=== PATIENT | male | born 1965 | race Caucasian/White ===

== ENCOUNTER 2017-11-15 10:55 | Inpatient (IN) ==
--- NOTE | 2017-11-15 11:11 | Emergency Department Note ---
Disposition Clinical Impression: Cerebrovascular accident Qualifiers: CVA mechanism: unspecified Qualified Code(s): I63.9 - Cerebral infarction, unspecified HTN (hypertension) Qualifiers: Hypertension type: essential hypertension Qualified Code(s): I10 - Essential ( primary) hypertension Disposition: Admitted As Inpatient Condition: Undetermined Time of Disposition: 11:52 Neuro HPI - General Chief Complaint: ED Neuro Symptoms/Deficit Stated Complaint: neuro symptoms Time Seen by Provider: 11/15/17 11:04 Source: patient, family Mode of arrival: ambulatory Limitations: no limitations Nursing Notes Reviewed: Yes Vital Signs Reviewed: Yes - History of Present Illness HPI Narrative: 52-year-old male with history of hypertension arrives to the emergency department complaining of right perioral numbness as well as numbness in the right upper extremity that started at 9 AM this morning. The patient states he woke up and was walking around the house and then all of a sudden had this sensation. The patient denies any headache today but did note that he had a headache yesterday. The patient was hypertensive with a systolic blood pressure 160. The patient denies any other complaints at this time. He is alert to person and place but is unsure of the year. This apparently is not his baseline. The patient denies any chest pain, difficulty breathing or any other noted complaints at this time. Onset of Symptoms Date: 11/15/17 Onset of Symptoms Time: 09:00 Symptom Onset Unknown: No Timing confirmed by: spouse Location: right face, right arm History of same: No Severity: mild Quality: numbness, tingling Symptoms Improving: No Improves with: none Worsens with: none Context: sudden onset On Anticoagulants: No Associated symptoms: Reports: confusion Treatments Prior to Arrival: none All systems ED: reviewed and negative except as stated. Constitutional: Denies: fever, chills ENT ED: Denies: congestion Cardiovascular: Denies: chest pain Respiratory: Denies: dyspnea Gastrointestinal: Denies: abdominal pain Genitourinary: Denies: dysuria Musculoskeletal: Denies: back pain, neck pain Integumentary: Denies: rash Neurological: Reports: headache, numbness, paresthesias, confusion. Denies: weakness Past Medical History - Past Medical History Attestation: Yes The following information was validated with the patient. Source: patient Medical history: Reports: hypertension Surgical history: Reports: non-contributory Psychiatric history: Reports: no psych history - Social History Smoking Status: Current every day smoker Smokeless Tobacco Status: No Alcohol use: Reports: occasionally Drug use: Reports: none Physical Exam - General Limitations: no limitations General appearance: alert, in no apparent distress - Head Head exam: atraumatic, normocephalic, normal inspection - Eye Eye exam: Present: normal appearance, PERRL, EOMI - ENT ENT exam: normal exam, normal oropharynx, mucous membranes moist - Neck Neck exam: Present: normal inspection, full ROM, trachea midline - Chest Chest inspection: Present: normal inspection, symmetric chest wall rise - Respiratory Respiratory exam: Present: normal lung sounds bilaterally - Cardiovascular Cardiovascular exam: Present: regular rate, normal rhythm, normal heart sounds - Abdominal Exam Abdominal exam: Present: soft, Non-Tender. Absent: tenderness, distention, guarding, rebound, rigidity - Extremities Exam Extremities exam: Present: normal inspection, full ROM. Absent: tenderness, pedal edema - Neurological Exam Neurological exam: Present: alert - Expanded Neurological Exam Patient oriented to: Present: person, place Speech: Present: fluid speech Cranial nerves: EOM function (II, III, IV, ): Normal, facial sensation (V): Normal, facial palsy (VII): Normal Cerebellar function: normal gait Motor strength - LUE: 5/5 Motor strength - RUE: 5/5 Motor strength - LLE: 5/5 Motor strength - RLE: 5/5 Sensory exam upper extremity: light touch: Normal Sensory exam lower extremity: light touch: Normal Coma Scale Eye Opening: Spontaneous Coma Scale Motor Response: Obeys Commands Coma Scale Verbal Response: Confused Coma Scale Total: 14 Course Vital Signs Temperature 98.3 F 11/15/17 10:58 Pulse Rate 88 11/15/17 10:58 Respiratory Rate 14 11/15/17 10:58 Blood Pressure 171/111 11/15/17 10:58 O2 Sat by Pulse Oximetry 98 11/15/17 10:58 Temperature 98.3 F 11/15/17 10:58 Pulse Rate 79 11/15/17 12:05 Respiratory Rate 11 11/15/17 12:05 Blood Pressure 137/99 11/15/17 12:05 O2 Sat by Pulse Oximetry 93 11/15/17 11:56 Oxygen Delivery Oxygen Delivery Room Air Neuro Symptoms/Deficit - MDM Narrative Medical decision making narrative: Workup in emergency Department demonstrates no acute process. Given the patient 's physical exam findings I am concerned about the patient having a CVA versus TIA. We will admit the patient to the hospitalist at this time as the patient is not a current TPA candidate. The patient had an NIH of 1. We will administer aspirin as well as admit the patient to the hospitalist service. Accepted by Dr. Gaffney. - Lab Data Lab results reviewed: Yes I reviewed the patient's lab results. Result diagrams: 11/15/17 11:12 11/15/17 11:12 Lab Results 11/15/17 11/15/17 11/15/17 Range/Units 11:12 11:12 11:12 WBC 7.2 (4.3-11.1) K/mcL RBC 5.43 (4.19-5.50) M/mcL Hgb 15.2 (12.9-16.9) g/dL Hct 46.8 (37.5-50.1) % MCV 86.2 (83.0-100.0) fL MCH 28.0 (28.0-33.3) pg MCHC 32.5 (31.6-35.5) g/dL RDW 13.3 (11.5-14.5) % Plt Count 243 (140-400) K/mcL MPV 10.1 (9.4-12.4) fL Immature Gran % 0.4 (0-4) % Seg Neutrophils % 62.1 % Lymphocytes % 23.6 % Monocytes % 8.1 % Eosinophils % 5.2 % Basophils % 0.6 % Neutrophils # 4.5 (1.6-8.9) K/mcL Lymphocytes # 1.7 (0.6-4.6) K/mcL Monocytes # 0.6 (0.0-1.3) K/mcL Eosinophils # 0.4 (0.0-0.6) K/mcL Basophils # 0.0 (0.0-0.2) K/mcL PT 11.1 (9.4-12.1) Seconds INR 1.0 APTT 31.9 (26.0-36.0) Seconds Sodium 142 (136-145) mEq/L Potassium 4.1 (3.5-4.5) mEq/L Chloride 106 (98-109) mEq/L Carbon Dioxide 26 (19-29) mEq/L BUN 10 (8-26) mg/dL Creatinine 0.89 (0.72-1.25) mg/dL Est GFR ( Amer) > 60 (> 60) Est GFR (Non-Af Amer) > 60 (> 60) BUN/Creatinine Ratio 11 (6-26) Glucose 111 H (70-99) mg/dL Calculated Osmolality 294 (280-300) Calcium 9.3 (8.6-10.8) mg/dL Troponin I (0-0.03) ng/mL 11/15/17 Range/Units 11:12 WBC (4.3-11.1) K/mcL RBC (4.19-5.50) M/mcL Hgb (12.9-16.9) g/dL Hct (37.5-50.1) % MCV (83.0-100.0) fL MCH (28.0-33.3) pg MCHC (31.6-35.5) g/dL RDW (11.5-14.5) % Plt Count (140-400) K/mcL MPV (9.4-12.4) fL Immature Gran % (0-4) % Seg Neutrophils % % Lymphocytes % % Monocytes % % Eosinophils % % Basophils % % Neutrophils # (1.6-8.9) K/mcL Lymphocytes # (0.6-4.6) K/mcL Monocytes # (0.0-1.3) K/mcL Eosinophils # (0.0-0.6) K/mcL Basophils # (0.0-0.2) K/mcL PT (9.4-12.1) Seconds INR APTT (26.0-36.0) Seconds Sodium (136-145) mEq/L Potassium (3.5-4.5) mEq/L Chloride (98-109) mEq/L Carbon Dioxide (19-29) mEq/L BUN (8-26) mg/dL Creatinine (0.72-1.25) mg/dL Est GFR ( Amer) (> 60) Est GFR (Non-Af Amer) (> 60) BUN/Creatinine Ratio (6-26) Glucose (70-99) mg/dL Calculated Osmolality (280-300) Calcium (8.6-10.8) mg/dL Troponin I 0.00 (0-0.03) ng/mL - Radiology Data Radiology results reviewed: Yes I reviewed the patient's radiology results. NIH Stroke Scale - Level of Consciousness LOC: Alert - LOC Questions LOC Questions: Answers both correctly - LOC Commands LOC Commands: Performs both correctly - Best Gaze Best Gaze: Normal - Visual Visual: No visual loss - Facial Palsy Facial Palsy: Normal - Motor Arms Motor Arm-Left: No drift for 10 seconds Motor Arm-Right: No drift for 10 seconds - Motor Legs Motor Leg-Left: No drift for 5 seconds Motor Leg-Right: No drift for 5 seconds - Limb Ataxia Limb Ataxia: Normal, No Ataxia - Sensory Sensory: Mild to moderate loss, "not as sharp" - Best Language Best Language: No aphasia - Dysarthria Dysarthria: Normal - Extinction and Inattention Extinction and Inattention: Normal - NIHSS Total Score NIHSS Total Score: 1 Attestation Statement - Attestation Attestation: I examined this patient and my medical decision-making was reviewed with the Resident Physician, Dr. Paz. I agree with the documented findings, disposition and treatment plan as described except to the extent set forth below. Patient is a 52-year-old white male brought to us by EMS this morning with concern for possible stroke. Patient arrives awake and alert with GCS 15 with clear speech able to answer questions appropriately and states that at 9 AM he woke up this morning was asymptomatic at the time of waking shortly after he got out of bed he began experiencing sudden onset of perioral numbness and paresthesias right upper extremity. 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 Patient's reports that he has been off his blood pressure medicines for the past few weeks and that she administered a dose of his amlodipine because she checked his blood pressure was significantly elevated. Patient took his typical morning dose. On arrival here he was hypertensive, Agree patient's physical exam findings as documented. Patient's NIH score on arrival equals 1 stroke alert was called Sent to CT scan following Accu-Chek which was within normal limits. Upon arrival back EKG was obtained labs were drawn and sent patient's symptoms upon return from CT were unchanged. No new symptoms. Patient's blood pressure improving without any medications ordered. CT head was reported as within normal limits by radiology. [facility] stroke heart was activated and the [facility] neurologist evaluated the patient at bedside as well. He is in agreement with he should not being a candidate for TPA. His recommendation was admission and further evaluation for CVA versus TIA. Patient's blood pressure has significantly improved over time, aspirin was administered and patient's neurologic exam is stable. Case was discussed with the hospitalist who accepted patient for admission.
[2017-11-15 11:26] LABS: Basophils % 0.6 %; Eosinophils # 0.4 K/mcL (0.0-0.6); Eosinophils % 5.2 %; Hematocrit 46.8 % (37.5-50.1); Hemoglobin 15.2 g/dL (12.9-16.9); Immature Granulocytes % 0.4 % (0-4); Lymphocytes # 1.7 K/mcL (0.6-4.6); Lymphocytes % 23.6 %; Mean Corpuscular HGB Conc 32.5 g/dL (31.6-35.5); Mean Corpuscular Volume 86.2 fL (83.0-100.0); Mean Platelet Volume 10.1 fL (9.4-12.4); Monocytes # 0.6 K/mcL (0.0-1.3); Monocytes % 8.1 %; Neutrophils # 4.5 K/mcL (1.6-8.9); Platelet Count 243 K/mcL (140-400); Red Blood Count 5.43 M/mcL (4.19-5.50); Red Cell Distribution Width 13.3 % (11.5-14.5); Segmented Neutrophils % 62.1 %
[2017-11-15 11:31] LABS: Prothrombin Time 11.1 Seconds (9.4-12.1)
[2017-11-15 11:34] LABS: Activated Partial Thrombo Time 31.9 Seconds (26.0-36.0)
[2017-11-15 11:37] LABS: BUN/Creatinine Ratio 11 (6-26); Blood Urea Nitrogen 10 mg/dL (8-26); Calcium 9.3 mg/dL (8.6-10.8); Carbon Dioxide 26 mEq/L (19-29); Chloride 106 mEq/L (98-109); Glucose 111 mg/dL (70-99); Osmolality,Calculated 294 (280-300); Potassium 4.1 mEq/L (3.5-4.5); Sodium 142 mEq/L (136-145); eGFR For African Americans > 60 (> 60); eGFR For Non-African Americans > 60 (> 60)
[2017-11-15] MEDS ORDERED: Aspirin 325 MG TABLET PO ONE (11:50)
[2017-11-15] MEDS ORDERED: *HR* Metoprolol 5 MG/5 ML VIAL IVP PRN (13:41)
[2017-11-15] MEDS ORDERED: Ondansetron 4 MG/2 ML VIAL IVP PRN (13:49)
[2017-11-15] MEDS ORDERED: Naloxone 0.4 MG/ML INJ IVP PRN (13:49)
--- NOTE | 2017-11-15 13:57 | Internal Med History&Physical ---
<Av Valencia - Last Filed: 11/15/17 13:54> Date of Encounter: 11/15/17 Time of Encounter: 13:54 Assessment and Plan (1) Cerebrovascular accident Current visit: Yes Status: Acute still reporting some right-sided numbness and tingling. Due to clinical presentation initially and continued symptoms and concern for parietal infarct. NIH score of 1, no focal neuro deficits noted. No prior history of arrhythmias, or VTE No prior CVA. Due to continued symptoms will make inpatient admission for further workup and evaluation Consult neurology-spoke with Dr. Burden and he has agreed to see patient MRI of the brain without contrast now Bilateral carotid ultrasounds to assess for stenosis Echocardiogram to assess for potential cardioembolic etiology Start patient on 40 mg simvastatin now, start 81 mg aspirin daily Every 2 hours neuro checks Continuous telemetry, continuous SPO2 monitoring Qualifiers: CVA mechanism: unspecified Qualified Code(s): I63.9 - Cerebral infarction, unspecified (2) HTN (hypertension) Current visit: Yes Status: Acute Hypertensive on arrival with SBP in the 170s. Now stable with SBP 130s. Patient is on Norvasc at home reports he has not taken his Norvasc for the last couple of weeks due to concern about possible side effects. However, his gave him his Norvasc after recognizing stroke symptoms prior to coming to the ED. Symptoms improved with BP control. Resume Norvasc Metoprolol 5 mg IV push every 6 hours for sustained SBP greater than 170 Qualifiers: Hypertension type: essential hypertension Qualified Code(s): I10 - Essential (primary) hypertension (3) DVT prophylaxis Current visit: Yes Status: Acute Heparin 5000 units subcutaneous twice a day Internal Medicine - H&P: HPI Chief complaint: Perioral numbness and tingling, right-sided paresthesias Admitted From: Home Plans for Post Hospital Care: Home History of present illness: Mr. Mercer is a 52 year old male with PMH of HTN. Presents today with perioral numbness and tingling and right-sided paresthesias. Denies any fever, chills, chest pain, shortness of breath, dizziness, vision changes, headaches. No prior history of CVA, no history of CAD. Main risk factor includes obesity and hypertension. Last known well as 9 AM this morning. Patient reports no longer allows again experiencing some numbness and tingling around her lips, and ataxia of right leg and right upper extremity. He reports that he was having difficulty brushing his teeth and no longer uses right hand. Such was left. at bedside reporting slurred speech and dragging right foot. By time of arrival to the ED patient only reporting jumps and tingling in the right fingers and mild perioral numbness. Workup thus far negative. CT of the head no acute intracranial abnormalities. Due to symptoms patient is being admitted for further rule out of CVA versus TIA Past Med Surg Social Fam HX - Past Medical History Medical history: hypertension Psychiatric history: no psych history - Past Surgical History Surgical History: non-contributory - Social History Smoking Status: Current every day smoker Smokeless Tobacco Status: No Alcohol use: occasionally Drug use: none - Family History Mother Age: 71 Living Status: Still Living Hx Family Endocrine Disorder: Yes (DM) Father Living Status: Age at : 72 Cause of : Pulmonary Fibrosis Hx Family Cardiac Disorders: Yes (HTN, CT) Hx Family Respiratory Disorders: Yes (Pulmonary fibrosis) Hx Family Neurologic Disorders: Yes (Stroke) Internal Medicine - H&P: Meds amLODIPine [Norvasc] 5 mg PO DAILY 11/15/17 [History] 3 Allergy/AdvReac Type Severity Reaction Status Date / Time No Known Allergies Allergy Verified 11/15/17 11:59 All Systems PM: A 10-system review of systems was performed and is negative for pertinent findings except as documented above in the HPI. - Constitutional Constitutional: no chills, no fever(s), no night sweats - EENT Eyes: no change in vision, no discharge, no pain, no photophobia Ears: no ear discharge, no ear pain, no tinnitus Nose, mouth and throat: no dysphagia, no nasal discharge, no neck pain, no sore throat - Cardiovascular Cardiovascular ROS IM: no chest pain, no diaphoresis, no dyspnea, no lightheadedness, no palpitations, no syncope - Respiratory Respiratory: no cough, no dyspnea, no wheezing, no excessive phlegm production - Gastrointestinal Gastrointestinal: no abdominal pain, no diarrhea, no hematemesis, no hematochezia, no melena, no nausea, no vomiting - Musculoskeletal Musculoskeletal ROS IM: no numbness, no tingling - Integumentary Integumentary IM: no rash, no unusual bruising - Neurological Neurological ROS: as per HPI, numbness, tingling, no confusion, no convulsions, no focal weakness, no headache(s), no tremor(s) - Hematologic/Lymphatic Hematologic/Lymphatic: no easy bruising - Constitutional Vitals: Temp Pulse Resp BP Pulse Ox 98.1 F 71 15 122/83 96 11/15/17 13:09 11/15/17 13:09 11/15/17 13:09 11/15/17 13:09 11/15/17 13:13 General appearance: Present: cooperative, A&O X 3, no acute distress, answers questions appropriately - Head Head exam: Present: atraumatic, normocephalic - Eye Eye exam: Present: PERRL, conjuntiva pink, sclera anicteric Pupils: Present: PERRL - Neck Neck exam general surgery: Present: supple, trachea midline. Absent: lymphadenopathy - Respiratory Respiratory exam: Present: CTAB. Absent: accessory muscle use, rales, rhonchi, wheezes - Cardiovascular Cardiovascular exam: Present: RRR, +S1, +S2. Absent: diastolic murmur, gallop, rubs, systolic murmur - GI/Abdominal GI/Abdominal exam: Present: normal bowel sounds, soft, no peritoneal signs. Absent: distended, tenderness - Extremities Exam Extremities exam: Present: warm, radial pulses palpable and symmetrical. Absent : calf tenderness, cyanotic, pedal edema - Neurological Exam Neurological exam: Present: alert, CN II-XII intact, oriented X3, no focal deficits, strengths equal and symetr throughout. Absent: pronater drift, facial droop, speech deficit - Expanded Neurological Exam Neurological exam expanded: Absent: expressive aphasia, receptive aphasia Patient oriented to: Present: person, place, time Speech: Present: fluid speech Cranial Nerves: EOM's intact PM: Normal, gag reflex PM: Normal, nystagmus PM: Normal, tongue deviation PM: Normal Cerebellar function: finger to nose: Normal, heel to de la rosa: Normal, Romberg: Normal Upper motor neuron: Babinski sign: Normal, Eliezer neglect: Normal, pronator drift : Normal, sensory extinction: Normal Neuro motor strength exam: LUE: 5, RUE: 5, LLE: 5, RLE: 5 Coma Scale Eye Opening: Spontaneous Coma Scale Motor Response: Obeys Commands Coma Scale Verbal Response: Oriented Coma Scale Total: 15 - Skin Skin exam: Present: dry, intact Internal Med - H&P Results - Labs CBC & Chem 7: 11/15/17 11:12 11/15/17 11:12 - EKG Data -: EKG Interpreted by Myself EKG shows normal: sinus rhythm - EKG Data Prior EKG available for review: yes When compared to previous EKG: there is no significant change Interpretation IM: normal EKG - Diagnostic Studies Chest x-ray Status: image reviewed by me Additional comments: No acute pulmonary process CT scan - head Status: image reviewed by me Additional comments: No acute intracranial abdomen allergies, no mass effect, hemorrhage or midline shift <Cathryn Sargent - Last Filed: 11/15/17 18:15> Date of Encounter: 11/15/17 Internal Medicine - H&P: HPI History of present illness: Mr. Mercer is a 52 year old male All Systems PM: A 10-system review of systems was performed and is negative for pertinent findings except as documented above in the HPI. - Constitutional Vitals: Temp Pulse Resp BP Pulse Ox 98.0 F 69 16 137/84 97 11/15/17 14:35 11/15/17 14:35 11/15/17 14:35 11/15/17 14:35 11/15/17 14:35 Internal Med - H&P Results - Labs CBC & Chem 7: 11/15/17 11:12 11/15/17 11:12 - Impressions ITS Impressions Brain MRI 11/15/17 14:03 IMPRESSION: No acute infarct, intracranial hemorrhage, or significant mass effect. D/ /15/2017 17:30:17 Mejia Ac MD / gary Interpreting Provider: Mejia Ac MD Neck MRA 11/15/17 14:30 IMPRESSION: No high-grade stenoses or focal occlusion involving the cervical vasculature. D/ / 11/15/2017 17:24:50 Mejia Ac MD / eugenio Interpreting Provider: Mejia Ac MD Head MRA 11/15/17 14:31 IMPRESSION: No high-grade stenosis or occlusion. No evidence of intracranial aneurysm. D/ / 11/15/2017 17:22:06 Mejia Ac MD / eugenio Interpreting Provider: Mejia Ac MD - Attending Attestation I examined this patient and my medical decision-making was reviewed with the Resident Physician. I agree with the documented findings, disposition and treatment plan as described except to the extent set forth below.
--- NOTE | 2017-11-15 14:22 | Neurology - Consult Note ---
Date of Encounter: 11/15/17 Time of Encounter: 14:18 Assessment and Plan (1) Cerebrovascular accident Current Visit: Yes Status: Acute Certainly is possible that he is experiencing symptoms of left cerebral hemispheric ischemia. He has had several hypertensive blood pressure readings since admission. He does have stroke risk factors including hypertension and obesity. He states that his father had an MO at age 57. He also smokes cigarettes. I did have the nurse recheck his vital signs, his blood pressure was 146/88. He was given aspirin in the ED according to protocol. I am going to obtain an MRI scan of the head with diffusion images along with MRA of the head and neck. I recommend maintaining stroke protocol orders pending further investigation. Qualifiers: CVA mechanism: unspecified Qualified Code(s): I63.9 - Cerebral infarction, unspecified History of Present Illness HPI: Mr. Mercer is a 52 year old male who was seen for neurologic consultation secondary to symptoms of transient ischemia. He does have a prior medical history of hypertension. He states that after awakening this morning he noticed some paresthesias involving the right side of the lips as well as paresthesias in the right upper extremity and right leg. His mentioned that he seemed to have some slurred speech. He apparently he had difficulty brushing his teeth this morning and was reported to have slurred speech. He states that his symptoms have resolved but now they are beginning to return. He denies headache denies vertigo denies visual changes. He has had some hypertensive readings since admission, 171/111, another was 162/105. He states that his symptoms of just returned in his blood pressure currently is 146/88. Stat CT scan of the head completed through the ED was negative. MRI scan of the brain as well as MRA of the head and neck are pending. Currently aside from the paresthesias he is in no acute distress. No dyspnea, diaphoresis no chest pain no weakness or changes. No speech difficulty. Past Med Surg Social Fam HX - Past Medical History Medical history: hypertension Psychiatric history: no psych history - Past Surgical History Surgical History: non-contributory - Social History Smoking Status: Current every day smoker Smokeless Tobacco Status: No Alcohol use: occasionally Drug use: none - Family History Mother Age: 71 Living Status: Still Living Hx Family Endocrine Disorder: Yes (DM) Father Living Status: Age at : 72 Cause of : Pulmonary Fibrosis Hx Family Cardiac Disorders: Yes (HTN, MO) Hx Family Respiratory Disorders: Yes (Pulmonary fibrosis) Hx Family Neurologic Disorders: Yes (Stroke) Medications and Allergies amLODIPine [Norvasc] 5 mg PO DAILY 11/15/17 [History] 3 Allergy/AdvReac Type Severity Reaction Status Date / Time No Known Allergies Allergy Verified 11/15/17 11:59 All Systems: A 10-system review of systems was performed and is negative for pertinent findings except as documented above in the HPI. Review of Systems: 10 point review of systems is consistent with a history of present illness and otherwise negative. Physical Examination - Vital Signs Vital Signs: Initial Vital Signs Temp Pulse Resp BP Pulse Ox 98.3 F 88 14 171/111 98 11/15/17 10:58 11/15/17 10:58 11/15/17 10:58 11/15/17 10:58 11/15/17 10:58 - Neurologic Sensorimotor examination: other (Hypoesthesias of the right upper and right lower lip as well as paresthesias of the fingertips on the right hand.) Detailed motor examination: full strength in all major muscle groups Motor examination - right side: 5/5: deltoids, biceps, triceps, wrist flexion, wrist extension, polishing machine tender, hip flexors, tibialis Anterior, quadriceps, toe extension (EHL), plantarflexion Motor examination - left side: 5/5: deltoids, biceps, triceps, wrist flexion, wrist extension, hip flexors, polishing machine tender, quadriceps, tibialis Anterior, toe extension (EHL), plantarflexion Reflexes: Biceps: 1+, Triceps: 1+, Brachioradialis: 1+, Patella: 1+, Achilles: 1 + Mental Status Examination: awake, alert, oriented to person, oriented to place, oriented to time, follows commands appropriately, answers questions appropriately, no agnosia, no aphasia, no aproxia Cranial nerve examination: PERRL, EOMI, visual mcdonald intact, corneal reflexes brisk symmetrically, sensory to face intact, mastication intact, no facial asymmetry is present, no dysarthria, hearing is intact symmetrically, soft palate elevates bilaterally upon phonation, gag reflex intact, flexes SCM and trapezius muscles symmetrically with full power, tongue protrudes midline, no atrophy or facial fasiculations present Cerebellar examination: no dysmetria, performs finger to nose and heel to de la rosa symmetrically without ataxia, no gait ataxia, no truncal ataxia, no difficulty with rapid alternating movements Results - Laboratory Findings CBC and BMP: 11/15/17 11:12 11/15/17 11:12 Abnormal lab findings: Abnormal lab results Glucose 111 mg/dL (70-99) H 11/15/17 11:12 Consult Discharge Plan - Plan Referrals: NONE,PCP [Primary Care Provider] -
[2017-11-15] MEDS: *HR* Heparin 5,000 UNIT/ML VIAL SQ SCH (17:12)
[2017-11-16] MEDS: *HR* Heparin 5,000 UNIT/ML VIAL SQ SCH (05:41)
[2017-11-16] MEDS ORDERED: Acetaminophen/Aspirin/Caffeine TABLET PO ONE (05:43)
[2017-11-16 07:01] LABS: Basophils % 0.4 %; Eosinophils # 0.4 K/mcL (0.0-0.6); Eosinophils % 4.4 %; Hematocrit 45.1 % (37.5-50.1); Hemoglobin 14.8 g/dL (12.9-16.9); Immature Granulocytes % 0.4 % (0-4); Lymphocytes # 1.6 K/mcL (0.6-4.6); Lymphocytes % 19.5 %; Mean Corpuscular HGB Conc 32.8 g/dL (31.6-35.5); Mean Corpuscular Volume 85.3 fL (83.0-100.0); Mean Platelet Volume 10.5 fL (9.4-12.4); Monocytes # 0.6 K/mcL (0.0-1.3); Monocytes % 6.8 %; Neutrophils # 5.7 K/mcL (1.6-8.9); Platelet Count 249 K/mcL (140-400); Red Blood Count 5.29 M/mcL (4.19-5.50); Red Cell Distribution Width 13.4 % (11.5-14.5); Segmented Neutrophils % 68.5 %
[2017-11-16 07:13] LABS: BUN/Creatinine Ratio 11 (6-26); Blood Urea Nitrogen 9 mg/dL (8-26); Calcium 8.9 mg/dL (8.6-10.8); Carbon Dioxide 27 mEq/L (19-29); Chloride 105 mEq/L (98-109); Glucose 116 mg/dL (70-99); Osmolality,Calculated 290 (280-300); Potassium 3.8 mEq/L (3.5-4.5); Sodium 140 mEq/L (136-145); eGFR For African Americans > 60 (> 60); eGFR For Non-African Americans > 60 (> 60)
[2017-11-16] MEDS ORDERED: amLODIPine 5 MG TABLET PO SCH (09:00)
[2017-11-16] MEDS ORDERED: Aspirin 81 MG TAB.CHEW PO SCH (09:00)
--- NOTE | 2017-11-16 12:33 | Discharge Summary ---
Date of Encounter: 11/16/17 Time of Encounter: 12:33 - Discharge Diagnosis (1) TIA (transient ischemic attack) Priority: Primary Status: Acute Qualifiers: Transient cerebral ischemia type: unspecified Qualified Code(s): G45.9 - Transient cerebral ischemic attack, unspecified (2) HLD (hyperlipidemia) Priority: Secondary Status: Chronic Qualifiers: Hyperlipidemia type: unspecified Qualified Code(s): E78.5 - Hyperlipidemia , unspecified (3) HTN (hypertension) Priority: Secondary Status: Chronic Qualifiers: Hypertension type: essential hypertension Qualified Code(s): I10 - Essential (primary) hypertension - Discharge Medications Prescriptions: amLODIPine [Norvasc] 5 mg PO DAILY #30 tablet Aspirin 81 mg PO DAILY #30 tab.chew Simvastatin [Zocor] 40 mg PO HS #30 tablet Home Medications: Aspirin 81 mg PO DAILY #30 tab.chew 11/16/17 [Rx] Simvastatin [Zocor] 40 mg PO HS #30 tablet 11/16/17 [Rx] amLODIPine [Norvasc] 5 mg PO DAILY #30 tablet 11/16/17 [Rx] Allergies/Adverse Reactions: 3 Allergy/AdvReac Type Severity Reaction Status Date / Time No Known Allergies Allergy Verified 11/15/17 11:59 Procedures/tests Complete & Pending: Procedures Performed prior 72 hours Category Date Time Status MR angio head wo con [MR] Stat MRI 11/15/17 14:31 Completed MR angio neck wo con [MR] Stat MRI 11/15/17 14:30 Completed MR head/brain wo con [MR] Routine MRI 11/15/17 14:03 Completed EV carotid duplex imaging BI Routine Y 11/16/17 14:03 Completed EV echocardiogram Routine Y 11/16/17 08:21 Completed Date of admission: 11/15/17 13:49 Primary care physician: PCP NONE Discharging clinician: Axel Tamez Anticipated date of discharge: 11/16/17 - Patient Status Disposition: Home, Self-Care Condition: Good Functional capacity at discharge: independent ambulation Overall status at discharge: patient is back to baseline - Discharge Instructions Instructions: Simvastatin (By mouth), Transient Ischemic Attack (DC), Influenza Vaccine (GEN), Low Sodium Diet (DC) Follow Up With: NONE,PCP [Primary Care Provider] - Additional Instructions: Follow-up appointments: If there is not an appointment listed below, please call your physician and schedule a follow-up appointment. If you have congestive heart failure and your symptoms return, make an appointment with your physician. Medication List: Carry an up to date list of medications you are taking at all time. We have given you an updated medication list including any new medications that you have been prescribed. Please provide that list to your primary provider Symptoms: If your condition changes or you experience any of the following symptoms, notify your physician immediately: Unusual or worsening pain, fever, persistent nausea and vomiting, bleeding, increase in swelling (especially in your legs), sudden weight gain, extreme dizziness, chest pain, increased drainage or redness from a wound or incision. Go to the emergency department if you experience a problem with breathing. Weights: If you have a history of swelling or shortness of breath, weigh yourself daily and notify your physician if you have a weight gain of two or more pounds in one day or 5 or more pounds in a week. If you experience any of the warning signs for stroke: Sudden numbness or weakness of the face, arm or leg; especially on one side of the body, sudden confusion, trouble speaking or understanding, sudden trouble seeing in one or both eyes, sudden trouble walking, dizziness, loss of balance or coordination, sudden sever headache with no cause; Call 911 or go to the emergency room. Stroke is a medical emergency. Some risk factors for stroke: Age, cigarette smoking, diabetes, excessive alcohol consumption, family history , high blood pressure, overweight, physical inactivity, prior stroke, heart attack, diagnosis of carotid artery stenosis or other artery disease. If you smoke, STOP: Smoking or tobacco use significantly increases your risk of heart and lung disease. Your chance of disease greatly increases if you continue to smoke. For more information, call the [place] tobacco quit line for smoking cessation QUIT-NOW ( ) - Diet and Activity Activity: resume usual activities as tolerated Diet: low salt diet Interval History: See below Hospital course: Mr. Mercer is a 52 year old male with PMH of HTN and Morbid Obesity, not complaint with medications He is a never smoker He presented with paraesthesias of his right face and lip region, as well as his RUE and RLE Head CT, Brain MRI, Head and Neck MRA, Carotid doppler and ECHO were unremarkable Hs EKG was sinus His blood pressure was elevate don arrival, controlled with re-initiation of his home meds Neurology was consulted and recommendations were for the work up above which were normal Lipid panel showed cholesterolemia Seen at bedside with spouse NO new complains, paresthesias is still present but improved CVA has been ruled out as no imaging evidence of infarct, ischemia or obstruction Encouraged on lifestyle modification and compliance with medications Discharged home on Amlodipine 5mg, Simvastatin, Aspirin, Follow up with PCP for medication adjustment and monitoring - Time Spent with Patient Total time spent providing and/or coordinating discharge services: Less than 30 minutes - Constitutional Vitals: Temp Pulse Resp BP Pulse Ox 97.8 F 78 15 135/88 95 11/16/17 10:49 11/16/17 10:49 11/16/17 10:49 11/16/17 10:49 11/16/17 10:49 General appearance: Present: cooperative, A&O X 3, no acute distress, answers questions appropriately - Head Head exam: Present: atraumatic, normocephalic - Eye Eye exam: Present: PERRL, conjuntiva pink, sclera anicteric Pupils: Present: PERRL - Neck Neck exam general surgery: Present: supple, trachea midline. Absent: lymphadenopathy - Respiratory Respiratory exam: Present: CTAB. Absent: accessory muscle use, rales, rhonchi, wheezes - Cardiovascular Cardiovascular exam: Present: RRR, +S1, +S2. Absent: diastolic murmur, gallop, rubs, systolic murmur - GI/Abdominal GI/Abdominal exam: Present: normal bowel sounds, soft, no peritoneal signs. Absent: distended, tenderness - Extremities Exam Extremities exam: Present: warm, radial pulses palpable and symmetrical. Absent : calf tenderness, cyanotic, pedal edema - Neurological Exam Neurological exam: Present: alert, CN II-XII intact, oriented X3, no focal deficits. Absent: pronater drift, facial droop, speech deficit - Skin Skin exam: Present: dry, intact
[2017-11-16] MEDS ORDERED: amLODIPine 5 MG TABLET PO ONE (13:00)
[2017-11-16 14:54] VITALS: BP 136/83
--- NOTE | 2017-11-16 15:10 | Neurology Progress Note ---
Date of Encounter: 11/16/17 Time of Encounter: 15:07 Assessment and Plan (1) Cerebrovascular accident Current Visit: Yes Status: Acute Qualifiers: CVA mechanism: unspecified Qualified Code(s): I63.9 - Cerebral infarction, unspecified (2) Rt facial numbness Current Visit: Yes Status: Acute At this juncture not able to identify any specific central nervous system or peripheral nervous system disorder to explain this phenomenon. Other than the subjective numbness of the right upper and lower lip in the tips of the fingers in the right hand is neurologic exam is normal. If I would still recommend discharging him on an aspirin a day. Risk factor management is paramount. Systems persist we consider EMG of the right upper extremity as an outpatient. Otherwise we will reevaluate him at your request. We discharged him at your discretion. Subjective Interval history: Chart was reviewed, patient was seen and examined. He still has complaints of subjective numbness of the right upper and lower liver. He still has subjective numbness of the tip of the thumb and index finger on the right hand. Otherwise his neurologic examination is completely normal. I find no objective evidence of central nervous system disorder at this point. Imaging studies have all come back normal. Echocardiogram is unrevealing as well. Objective - Constitutional Vitals: Temp Pulse Resp BP Pulse Ox 97.8 F 80 16 136/83 95 11/16/17 14:51 11/16/17 14:51 11/16/17 14:51 11/16/17 14:51 11/16/17 14:51 - Neurological Exam Sensorimotor examination: Present: other (Hypoesthesias of the right upper and right lower lip as well as paresthesias of the fingertips on the right hand.) Motor Examination: Present: full strength in all major muscle groups Motor examination - right side: 5/5: deltoids, biceps, triceps, wrist flexion, wrist extension, development technologist, hip flexors, tibialis Anterior, quadriceps, toe extension (EHL), plantarflexion Motor examination - left side: 5/5: deltoids, biceps, triceps, wrist flexion, wrist extension, hip flexors, development technologist, quadriceps, tibialis Anterior, toe extension (EHL), plantarflexion Mental Status Examination: Present: awake, alert, oriented to person, oriented to place, oriented to time, follows commands appropriately, answers questions appropriately, no agnosia, no aphasia, no aproxia Cranial nerve examination: Present: PERRL, EOMI, visual mcdonald intact, corneal reflexes brisk symmetrically, sensory to face intact, mastication intact, no facial asymmetry is present, no dysarthria, hearing is intact symmetrically, soft palate elevates bilaterally upon phonation, gag reflex intact, flexes SCM and trapezius muscles symmetrically with full power, tongue protrudes midline, no atrophy or facial fasiculations present Cerebellar examination: Present: no dysmetria, performs finger to nose and heel to [place] symmetrically without ataxia, no gait ataxia, no truncal ataxia, no difficulty with rapid alternating movements Results - Laboratory Findings CBC and BMP: 11/16/17 06:02 11/16/17 06:02 Abnormal lab findings: Abnormal lab results Glucose 116 mg/dL (70-99) H 11/16/17 06:02 POC Glucose 116 (58-89) H 11/15/17 11:01 Triglycerides 166 mg/dL (< 150) H 11/16/17 06:02 LDL Cholesterol, Calc 122 mg/dL (0-99) H 11/16/17 06:02 VLDL Cholesterol, Calc 33 mg/dL (< 31) H 11/16/17 06:02 HDL Cholesterol 31 mg/dL (40-59) L 11/16/17 06:02 Cholesterol/HDL Ratio 6.0 (0-4.9) H 11/16/17 06:02 Consult Discharge Plan - Plan Instructions: Simvastatin (By mouth), Transient Ischemic Attack (DC), Influenza Vaccine (GEN), Low Sodium Diet (DC) Referrals: NONE,PCP [Primary Care Provider] - Prescriptions: amLODIPine [Norvasc] 5 mg PO DAILY #30 tablet Aspirin 81 mg PO DAILY #30 tab.chew Simvastatin [Zocor] 40 mg PO HS #30 tablet
--- NOTE | 2017-11-17 10:00 | Electrocardiograph Report ---
[place] [id number] Test Date: 2017-11-15 Pat Name: Anant Mercer Department: 104 Room: 3B Gender: M [employer]: MSC : [id number] Requested By: Jay Paz Order Number: [id number] Reading MD: Terrence Thomas DO Measurements Intervals [place] Rate: 73 P: 43 [place]: 162 QRS: -15 QRSD: 94 T: 30 QT: 359 QTc: 385 Interpretive Statements SINUS RHYTHM Electronically Signed On 11-17-2017 9:58:32 EST by Terrence Thomas DO
== END 2017-11-16 15:53 | disposition home or self-care (01) | DRG 69 ==
LOC: EMEROO 10:55 → 3BNU 10:55 → SUATTDRO 13:49
PROVIDERS: ADMIT Internal Medicine; ATTEND Internal Medicine

== ENCOUNTER 2022-09-01 10:29 | Observation (INO) ==
[2022-09-01] MEDS ORDERED: Albuterol 2.5 MG/3 ML NEBULIZER IH PRN (11:09)
[2022-09-01] MEDS ORDERED: *HR* HYDROmorphone PF 0.5 MG/0.5 ML SYRINGE IVP PRN (11:09)
[2022-09-01] MEDS ORDERED: Ondansetron 4 MG/2 ML VIAL IVP PRN ×2 (11:09→19:21)
[2022-09-01] MEDS ORDERED: Ipratropium Neb 0.5 MG NEBULIZER IH PRN (11:09)
[2022-09-01] MEDS ORDERED: *HR* Labetalol 20 MG/4 ML SYRINGE IVP PRN (11:09)
[2022-09-01] MEDS ORDERED: Acetaminophen IV 1,000 MG/100 ML BAG IVPB PRN (11:09)
[2022-09-01] MEDS ORDERED: *HR* OxyCODONE Immed Rel 5 MG TABLET PO PRN (11:09)
[2022-09-01] MEDS ORDERED: *HR* FentaNYL (PF) 100 MCG/2 ML VIAL IVP PRN (11:09)
[2022-09-01] MEDS ORDERED: CeFAZolin Syr 3,000MG/30 ML 3,000 MG/30 ML SYRINGE IVPB ONE (11:17)
[2022-09-01] MEDS ORDERED: Ringers Solution, Lactated 1,000 ML IVC SCH ×2 (11:30→19:21)
[2022-09-01] MEDS ORDERED: Ondansetron 4 MG/2 ML VIAL ONE (12:16)
[2022-09-01] MEDS ORDERED: *HR* Midazolam HCl 2 MG/2 ML VIAL ONE (12:16)
[2022-09-01] MEDS ORDERED: Lidocaine -MPF 2% 2 ML VIAL ONE ×2 (12:16→12:18)
[2022-09-01] MEDS ORDERED: *HR* Succinylcholine 200 MG/10 ML VIAL IVP ONE (12:16)
[2022-09-01] MEDS ORDERED: *HR* FentaNYL (PF) 100 MCG/2 ML VIAL ONE (12:16)
[2022-09-01] MEDS ORDERED: *HR* Rocuronium Bromide 50 MG/5 ML VIAL ONE (12:16)
[2022-09-01] MEDS ORDERED: *HR* Propofol 200 MG/20 ML VIAL IVP ONE ×2 (12:16→13:59)
[2022-09-01] MEDS ORDERED: Vancomycin 1,000 MG VIAL ONE (13:24)
[2022-09-01] MEDS ORDERED: EPHEDrine sulfate 50 MG/10 ML VIAL IVP ONE (14:39)
[2022-09-01] MEDS ORDERED: *HR* Remifentanil 1 MG VIAL IVP ONE ×2 (15:15→16:05)
[2022-09-01] MEDS ORDERED: *HR* HYDROMORPHONE 2 MG/ML VIAL ONE ×2 (15:50→16:49)
[2022-09-01] MEDS ORDERED: Promethazine 6.25 MG in Water for inj. (sterile) 20 ML IVPB PRN (17:50)
[2022-09-01] MEDS ORDERED: Acetaminophen 325 MG TABLET PO PRN (19:21)
[2022-09-01] MEDS ORDERED: Naloxone 0.4 MG/ML INJ IVP PRN (19:21)
[2022-09-01] MEDS ORDERED: Prochlorperazine 10 MG/2 ML VIAL IVP PRN (20:05)
[2022-09-01] MEDS: *HR* HYDROcodone/Acet 5/325 mg TABLET PO PRN (22:34)
[2022-09-02] MEDS: ceFAZolin 3,000 MG in 0.9 % Sodium Chloride 100 ML IVPB SCH ×2 (00:21→08:13)
[2022-09-02] MEDS: *HR* OxyCODONE Immed Rel 5 MG TABLET PO PRN ×4 (03:01→21:37)
[2022-09-02] MEDS: *HR* HYDROcodone/Acet 5/325 mg TABLET PO PRN ×2 (05:17→12:07)
[2022-09-02] MEDS: Acetaminophen IV 1,000 MG/100 ML BAG IVPB PRN ×2 (05:18→23:02)
[2022-09-02] MEDS: Loratadine/Pseudophed (12 HR) 1 EACH TABLET PO SCH (08:02)
[2022-09-02] MEDS: lisinopriL 20 MG TABLET PO SCH (08:02)
[2022-09-02] MEDS: amLODIPine 5 MG TABLET PO SCH (08:02)
[2022-09-02] MEDS ORDERED: ceFAZolin 3,000 MG in 0.9 % Sodium Chloride 100 ML IVPB SCH (09:00)
[2022-09-02] MEDS: tiZANidine 4 MG TABLET PO PRN ×2 (12:07→21:37)
[2022-09-03] MEDS: *HR* OxyCODONE Immed Rel 5 MG TABLET PO PRN ×4 (02:48→20:36)
[2022-09-03] MEDS: tiZANidine 4 MG TABLET PO PRN ×2 (05:48→15:05)
[2022-09-03] MEDS: *HR* HYDROcodone/Acet 5/325 mg TABLET PO PRN (05:48)
[2022-09-03] MEDS: Loratadine/Pseudophed (12 HR) 1 EACH TABLET PO SCH (10:39)
[2022-09-03] MEDS: lisinopriL 20 MG TABLET PO SCH (10:39)
[2022-09-03] MEDS: amLODIPine 5 MG TABLET PO SCH (10:39)
[2022-09-04] MEDS: *HR* OxyCODONE Immed Rel 5 MG TABLET PO PRN ×3 (00:18→11:52)
[2022-09-04] MEDS: tiZANidine 4 MG TABLET PO PRN ×2 (01:24→10:27)
[2022-09-04 06:53] LABS: Bilirubin,Urine Negative (Negative); Blood,Urine Negative (Negative); Clarity,Urine Clear (Clear); Color,Urine Colorless (Yellow); Glucose,Urine (UA) Normal (Normal); Ketones,Urine Negative (Negative); Leukocyte Esterase,Urine Negative (Negative); Nitrite,Urine Negative (Negative); PH,Urine 6.5 pH Units (5.0-8.0); Protein,Urine Negative (Neg-Trace); Specific Gravity,Urine 1.006 (1.010-1.025); Urobilinogen,Urine Normal (Normal)
[2022-09-04 09:08] VITALS: BP 119/80; PULSE 86; TEMP 98.7; O2SAT 93
[2022-09-04] MEDS: amLODIPine 5 MG TABLET PO SCH (09:08)
[2022-09-04] MEDS: Loratadine/Pseudophed (12 HR) 1 EACH TABLET PO SCH (09:09)
[2022-09-04] MEDS: lisinopriL 20 MG TABLET PO SCH (09:09)
[2022-09-04] MEDS: *HR* HYDROcodone/Acet 5/325 mg TABLET PO PRN (09:13)
== END 2022-09-04 13:05 | disposition home or self-care (01) ==
LOC: 4WAOSI 10:29 → SDCAOSI 10:29 → 4WAOSI 19:04
PROVIDERS: ADMIT Orthopaedic Surgery Orthopaedic Surgery of the Spine; ATTEND Orthopaedic Surgery Orthopaedic Surgery of the Spine